=== PATIENT | female | born 1980 | race Two or more races ===

== ENCOUNTER 2017-02-20 15:13 | Inpatient (IN) | payer OTHER ==
[~2017-02-20] VITALS: Ht 152.4 cm; Wt 89.4 kg
[~2017-02-20 15:13] MED LIST: LISI-603 PO
[2017-02-20 15:49] LABS: BASOPHILS % (AUTO) 0.5 % (0.0-2.0); EOSINOPHILS # (AUTO) 0.1 /CMM (0.0-0.7); EOSINOPHILS % (AUTO) 1.7 % (0.0-6.0); HEMATOCRIT 40 % (33-45); LYMPHOCYTES % (AUTO) 36.9 % (20.0-44.0); MEAN CORPUSCULAR HEMOGLOBIN 26 PG (26.0-33.0); MEAN CORPUSCULAR HGB CONC 32 g/dl (31.0-36.0); MEAN CORPUSCULAR VOLUME 80 fL (82-100); MONOCYTES # (AUTO) 0.5 /CMM (0.1-1.30); MONOCYTES % (AUTO) 5.5 % (2.0-12.0); NEUTROPHILS # (AUTO) 4.6 /CMM (1.8-8.9); NEUTROPHILS % (AUTO) 55.4 % (43.0-81.0); PLATELET COUNT (AUTO) 272 /CMM (150-450); RDW COEFFICIENT OF VARIATION 14.8 (11.5-15.0); RED BLOOD CELL COUNT(AUTO) 5.01 MIL/uL (4.0-5.2); WHITE BLOOD COUNT (AUTO) 8.2 K/uL (4.3-11.0)
[2017-02-20 15:59] LABS: CALCIUM, SERUM 8.8 mg/dL (8.5-10.1); CARBON DIOXIDE 27 mmol/L (21-32); CHLORIDE 102 mmol/L (98-107); CREATININE 1.1 mg/dL (0.6-1.3); GLUCOSE 110 mg/dL (74-106); POTASSIUM 3.7 mmol/L (3.5-5.1); SODIUM SERUM 139 mmol/L (136-145); UREA NITROGEN, BLOOD 20 mg/dL (7-18)
[2017-02-20 16:03] LABS: INR 0.99 (0.87-1.13); PROTHROMBIN TIME 10.3 SECS (9.5-12.7)
[2017-02-20 16:04] LABS: ALANINE AMINOTRANSFERASE 14 U/L (12-78); ALBUMIN 3.9 g/dL (3.4-5.0); ALCOHOL, BLOOD < 3 mg/dL (0-0); ALKALINE PHOSPHATASE 92 U/L (46-116); ASPARTATE AMINOTRANSFERASE 11 U/L (15-37); BILIRUBIN,DIRECT 0.1 mg/dL (0.0-0.2); BILIRUBIN,TOTAL 0.4 mg/dL (0.2-1.0); TOTAL PROTEIN, SERUM 7.9 g/dL (6.4-8.2)
[2017-02-20 16:33] LABS: PHENYTOIN (DILANTIN) < 0.5 ug/ml (10.0-20.0)
[2017-02-20] MEDS ORDERED: PANT40TA4 PO (16:47)
[2017-02-20] MEDS ORDERED: MEMA5TAB PO (16:47)
[2017-02-20] MEDS ORDERED: ATOR80TA PO (16:47)
[2017-02-20] MEDS ORDERED: METO25TA6 PO (16:47)
[2017-02-20] MEDS ORDERED: BENA10TA2 PO (16:47)
[2017-02-20] MEDS ORDERED: NIFE90TA2 PO (16:47)
[2017-02-20] MEDS ORDERED: ESCI20TA PO (16:47)
[2017-02-20 18:00] VITALS: BP 127/84
[2017-02-20 20:00] VITALS: BP 129/77
[2017-02-21] VITALS: BP 128/80
[2017-02-21 04:00] VITALS: BP 139/91
[2017-02-21 06:35] LABS: BASOPHILS % (AUTO) 0.6 % (0.0-2.0); EOSINOPHILS # (AUTO) 0.1 /CMM (0.0-0.7); EOSINOPHILS % (AUTO) 1.4 % (0.0-6.0); HEMATOCRIT 45 % (33-45); HEMOGLOBIN 14.6 g/dL (11.5-14.8); LYMPHOCYTES % (AUTO) 36.3 % (20.0-44.0); MEAN CORPUSCULAR HEMOGLOBIN 26 PG (26.0-33.0); MEAN CORPUSCULAR HGB CONC 33 g/dl (31.0-36.0); MEAN CORPUSCULAR VOLUME 81 fL (82-100); MONOCYTES # (AUTO) 0.5 /CMM (0.1-1.30); MONOCYTES % (AUTO) 5.6 % (2.0-12.0); NEUTROPHILS # (AUTO) 4.6 /CMM (1.8-8.9); NEUTROPHILS % (AUTO) 56.1 % (43.0-81.0); PLATELET COUNT (AUTO) 250 /CMM (150-450); RDW COEFFICIENT OF VARIATION 15.7 (11.5-15.0); RED BLOOD CELL COUNT(AUTO) 5.53 MIL/uL (4.0-5.2); WHITE BLOOD COUNT (AUTO) 8.2 K/uL (4.3-11.0)
[2017-02-21 07:00] LABS: CREATININE 0.8 mg/dL (0.6-1.3); MAGNESIUM 2.1 mg/dL (1.8-2.4); PHOSPHORUS 4.4 mg/dL (2.5-4.9)
[2017-02-21 07:07] LABS: POTASSIUM 3.8 mmol/L (3.5-5.1)
[2017-02-21 07:08] LABS: THYROID STIMULATING HORMONE 3.858 uIU/mL (0.358-3.74)
[2017-02-21 08:00] VITALS: BP 137/86
[2017-02-21 08:36] VITALS: BP 134/58
[2017-02-21 11:12] LABS: APPEARANCE,URINE TURBID (CLEAR); BILIRUBIN,URINE NEGATIVE (NEGATIVE); BLOOD, URINE NEGATIVE Ery/uL (NEGATIVE); COLOR,URINE YELLOW (YELLOW); KETONES,URINE NEGATIVE (NEGATIVE); LEUKOCYTE ESTERASE ,URINE NEGATIVE (NEGATIVE); NITRITE, URINE NEGATIVE (NEGATIVE); PROTEIN,URINE NEGATIVE (NEGATIVE); UGLUCOSE NEGATIVE (NEGATIVE); UROBILINOGEN,URINE 0.2 EU/dL (0.2)
[2017-02-21 11:15] LABS: BACTERIA,URINE 1+ /HPF (None Seen); MUCUS,URINE Few /LPF (None Seen); RBC,URINE 0-2 /HPF (0-2); URINE AMORPHOUS URATE Moderate /HPF (None Seen); WBC,URINE 0-2 /HPF (0-3)
[2017-02-21] MEDS ORDERED: LEVE500T9 PO (11:33)
== END 2017-02-21 14:20 | disposition home or self-care (01) | DRG 53 ==
LOC: ER 15:15 → TELE 17:38 → MED 02-21 08:35
PROVIDERS: ADMIT Nurse Practitioner Acute Care; ATTEND Nurse Practitioner Acute Care
DX: G40.909 Epilepsy, unspecified, not intractable, without status epilepticus (principal); N17.0 Acute kidney failure with tubular necrosis; I69.354 Hemiplegia and hemiparesis following cerebral infarction affecting left non-dominant side; I10 Essential (primary) hypertension; Z98.890 Other specified postprocedural states; Z88.0 Allergy status to penicillin; Z79.899 Other long term (current) drug therapy; E66.9 Obesity, unspecified; I69.311 Memory deficit following cerebral infarction; Z68.38 Body mass index [BMI] 38.0-38.9, adult
CPT/HCPCS: 36415; 70450-TC; 71010-TC; 80048-TC; 80061-TC; 80076-TC; 80185-TC; 80305; 81000-TC; 83735-TC; 84100-TC; 84443-TC; 84703-TC; 85025-TC; 85730-TC; 87081-TC; 95819-TC; A4606; G0480; J1953; J7030; Z7610

== ENCOUNTER 2017-10-17 04:06 | Emergency (ER) | payer OTHER ==
[~2017-10-17] VITALS: Ht 165.1 cm; Wt 97.5 kg
[~2017-10-17 04:06] MED LIST changes: +ATOR80TA PO; +BENA10TA9 PO; +ESCI20TA PO; +LEVE500T9 PO; -LISI-603 PO; +MEMA5TAB PO; +METO25TA6 PO; +NIFE90TA2 PO; +PANT40TA4 PO
--- NOTE | 2017-10-17 04:06 | NUR ---
to bed [facility] paramedics c/o seizure. receive pt aaox4 no acute distress noted, resp even and unlabored. 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 no oral trauma, no bowel or bladder incontinence noted. place pt on cardiac monitoring, continuous pox. pending er md elizabeth.
[2017-10-17 05:08] LABS: BASOPHILS % (AUTO) 0.5 % (0.0-2.0); EOSINOPHILS % (AUTO) 1.1 % (0.0-6.0); HEMATOCRIT 39 % (33-45); HEMOGLOBIN 12.5 g/dL (11.5-14.8); LYMPHOCYTES # (AUTO) 2.2 /CMM (0.8-4.8); LYMPHOCYTES % (AUTO) 26.7 % (20.0-44.0); MEAN CORPUSCULAR HGB CONC 33 g/dl (31.0-36.0); MEAN CORPUSCULAR VOLUME 78 fL (82-100); MONOCYTES # (AUTO) 0.5 /CMM (0.1-1.30); MONOCYTES % (AUTO) 6.5 % (2.0-12.0); NEUTROPHILS # (AUTO) 5.4 /CMM (1.8-8.9); NEUTROPHILS % (AUTO) 65.2 % (43.0-81.0); PLATELET COUNT (AUTO) 272 /CMM (150-450); RDW COEFFICIENT OF VARIATION 14.4 (11.5-15.0); RED BLOOD CELL COUNT(AUTO) 4.95 MIL/uL (4.0-5.2); WHITE BLOOD COUNT (AUTO) 8.3 K/uL (4.3-11.0)
[2017-10-17 05:09] LABS: APPEARANCE,URINE CLEAR (CLEAR); BILIRUBIN,URINE NEGATIVE (NEGATIVE); BLOOD, URINE 1+ Ery/uL (NEGATIVE); COLOR,URINE YELLOW (YELLOW); KETONES,URINE NEGATIVE (NEGATIVE); LEUKOCYTE ESTERASE ,URINE NEGATIVE (NEGATIVE); NITRITE, URINE POSITIVE (NEGATIVE); PROTEIN,URINE NEGATIVE (NEGATIVE); UGLUCOSE NEGATIVE (NEGATIVE); UROBILINOGEN,URINE 0.2 EU/dL (0.2)
[2017-10-17 05:14] LABS: BACTERIA,URINE Many /HPF (None Seen); SQUAMOUS EPITHELIAL CELL,UR Few /HPF (None Seen)
[2017-10-17 05:23] LABS: CALCIUM, SERUM 9.2 mg/dL (8.5-10.1); CREATININE 0.9 mg/dL (0.6-1.3); POTASSIUM 3.8 mmol/L (3.5-5.1)
[2017-10-17] MEDS ORDERED: LamoTRIgine 100 MG TABLET PO SCH (05:30)
--- NOTE | 2017-10-17 05:42 | NUR ---
Patient discharged to home in stable condition. Written and verbal after care instructions given. Patient verbalizes understanding of instruction.IV removed. Catheter intact and site benign. Pressure and 4x4 applied to site. No bleeding noted.
[2017-10-17 05:47] VITALS: BP 145/88
== END 2017-10-17 05:47 | disposition home or self-care (01) ==
LOC: ER 04:08
DX: G40.909 Epilepsy, unspecified, not intractable, without status epilepticus (principal); F32.9 Major depressive disorder, single episode, unspecified; I10 Essential (primary) hypertension; Z86.73 Personal history of transient ischemic attack (TIA), and cerebral infarction without residual deficits; Z88.0 Allergy status to penicillin; Z88.1 Allergy status to other antibiotic agents; Z98.890 Other specified postprocedural states
CPT/HCPCS: 36415; 80048-TC; 81000-TC; 82962-TC; 84703-TC; 85025-TC; 87086-TC; 87186-TC; A4606; Z7610

== ENCOUNTER 2017-12-06 09:44 | Emergency (ER) | payer OTHER ==
[~2017-12-06] VITALS: Ht 160 cm; Wt 97.1 kg
[~2017-12-06 09:44] MED LIST changes: +BENA10TA2 PO; -BENA10TA9 PO
--- NOTE | 2017-12-06 09:46 | NUR ---
AAOX2, BIBRA 37 FROM HOME C/O SEIZURE ABOUT A MINUTE, NO TRAUMA, NF=[id number]/DL, POST-ICTAL. RR IS EVEN AND UNLABORED WITH NO ACUTE RESP/CARDIAC DISTRESS. SKIN IS WARM AND DRY. LAST SEIZURE WAS IN OCTOBER 2017. PLACED ON MONITOR. AWAITING MD FOR EVAL.
--- NOTE | 2017-12-06 09:56 | NUR ---
DR MULLINS AT BS FOR NERISSA.
--- NOTE | 2017-12-06 10:30 | NUR ---
Pt ambulatory with a steady gait.
--- NOTE | 2017-12-06 10:35 | NUR ---
IV removed. Catheter intact and site benign. Pressure and 4x4 applied to site. No bleeding noted.
--- NOTE | 2017-12-06 10:40 | NUR ---
Patient discharged to home in stable condition. Written and verbal after care instructions given. Patient verbalizes understanding of instruction.
[2017-12-06 10:53] VITALS: BP 114/68
== END 2017-12-06 10:54 | disposition home or self-care (01) ==
LOC: ER 09:45
DX: G40.909 Epilepsy, unspecified, not intractable, without status epilepticus (principal); F32.9 Major depressive disorder, single episode, unspecified; I10 Essential (primary) hypertension; Z88.0 Allergy status to penicillin; Z86.73 Personal history of transient ischemic attack (TIA), and cerebral infarction without residual deficits; Z98.890 Other specified postprocedural states
CPT/HCPCS: A4606; Z7610

== ENCOUNTER 2022-03-27 08:42 | Inpatient (IN) | payer OTHER ==
[~2022-03-27] VITALS: Ht 152.4 cm; Wt 96.2 kg
[~2022-03-27 08:42] MED LIST changes: -BENA10TA2 PO; +BENA10TA74 PO; -PANT40TA4 PO; +PANT40TA49 PO
--- NOTE | 2022-03-27 08:50 | NUR ---
[id number] home for witnessed seizure lasting 3 mins, no head/oral trauma; to er bed 12. pt changed to gown and attached to monitor. seizure precs observed.
--- NOTE | 2022-03-27 10:03 | NUR ---
URINE SAMPLE COLLECTED AND SENT TO LAB
--- NOTE | 2022-03-27 10:04 | NUR ---
EKG DONE AT BEDSIDE
--- NOTE | 2022-03-27 10:05 | NUR ---
IV LINE ESTABLISHED ON LAC #20, BLOOD DRAWN AND COLLECTED BY PHLEB AT BEDSIDE.
[2022-03-27 10:07] LABS: BASOPHILS % (AUTO) 0.5 % (0.0-2.0); EOSINOPHILS % (AUTO) 0.6 % (0.0-6.0); HEMATOCRIT 47 % (33-45); HEMOGLOBIN 15.3 g/dL (11.5-14.8); LYMPHOCYTES # (AUTO) 1.7 K/uL (0.8-4.8); LYMPHOCYTES % (AUTO) 20.4 % (20.0-44.0); MEAN CORPUSCULAR HGB CONC 33 g/dl (31.0-36.0); MEAN CORPUSCULAR VOLUME 85 fL (82-100); MONOCYTES # (AUTO) 0.5 K/uL (0.1-1.30); MONOCYTES % (AUTO) 5.6 % (2.0-12.0); NEUTROPHILS # (AUTO) 6.2 K/uL (1.8-8.9); NEUTROPHILS % (AUTO) 72.9 % (43.0-81.0); PLATELET COUNT (AUTO) 207 K/uL (150-450); RED BLOOD CELL COUNT(AUTO) 5.53 MIL/uL (4.0-5.2); WHITE BLOOD COUNT (AUTO) 8.6 K/uL (4.3-11.0)
[2022-03-27] MEDS ORDERED: LAMO100T17 PO (10:18)
[2022-03-27] MEDS ORDERED: LOSA25TA27 PO (10:18)
--- NOTE | 2022-03-27 10:18 | NUR ---
COVID AND MRSA SWABS OBTAINED AND SENT TO LAB
[2022-03-27] MEDS ORDERED: OMEG1CAP PO (10:19)
--- NOTE | 2022-03-27 10:24 | NUR ---
[facility] CALLED VERIFICATION SPECIALIST PAGED.
[2022-03-27 10:37] LABS: ALCOHOL, BLOOD < 3 mg/dL (0-0); CALCIUM, SERUM 9.2 mg/dL (8.5-10.1); CARBON DIOXIDE 26 mmol/L (21-32); CHLORIDE 105 mmol/L (98-107); CREATININE 1.2 mg/dL (0.6-1.3); GLUCOSE 118 mg/dL (74-106); POTASSIUM 3.6 mmol/L (3.5-5.1); SODIUM SERUM 139 mmol/L (136-145); UREA NITROGEN, BLOOD 15 mg/dL (7-18)
[2022-03-27] MEDS ORDERED: IOHEXOL-350 100 ML VIAL IV ONE (10:43)
--- NOTE | 2022-03-27 10:49 | NUR ---
PT TAKEN TO RADIOLOGY FOR CT
--- NOTE | 2022-03-27 10:56 | NUR ---
GOT BED 108
--- NOTE | 2022-03-27 11:08 | NUR ---
PT RETURNED FROM RADIOLOGY
--- NOTE | 2022-03-27 11:16 | NUR ---
PT REPORT GIVEN TO CHANELL GIBSON
[2022-03-27 12:16] VITALS: BP 134/78
--- NOTE | 2022-03-27 12:16 | NUR ---
PT TRANSFERRED TO 108 VIA [facility] ACLS PROTOCOL. WARM HANDOFF GIVEN TO CHANELL GIBSON
--- NOTE | 2022-03-27 12:16 | NUR ---
RN NOTES PATIENT ADMITTED FROM ER 42Y/OLD FEMALE ON Dx OF R/O CVA, SEIZURE. PATEIN A/O X3, FORGETFUL PER BROTHER, LEFT SIDE WEAKNESS, CONTINENT USING BATHROOM. SKIN ASSESSMENT DONE INTACT. PATIENT ROOM AIR ACUTE RESPIRATORY DISTRESS. FAMILY NEXT TO THE BED. IV ACCESS ON LAC AREA INTACT. VS TAKEN BP- 134/78, P-73, T-98.1F, O2-94 RA, PATIENT REFUSED PAIN, HIGH FALL RISK. CALL LIGHT WITHIN TO REACH. SAFETY PRECAUTION MAINTAINED ALL THE TIME.
[2022-03-27] MEDS ORDERED: MEMA10TA PO (14:55)
[2022-03-27] MEDS ORDERED: ZONI100C31 PO (14:55)
[2022-03-27] MEDS: ENOXAPARIN SODIUM 40 MG/0.4 ML DISP.SYRIN SQ SCH (15:53)
[2022-03-27 16:00] VITALS: BP 121/83
[2022-03-27 17:00] VITALS: BP 121/83
--- NOTE | 2022-03-27 18:15 | NUR ---
RN NOTES PATENT STABLE, BP1-121/83,P-76, TOLERATED DINNER 75% SELF, REFUSED PAIN. NEURO ASSESSMENT DONE, PATIENT HAS WEAKNESS LEFT ARM AND LEFT LEG. DUE MEDICATION ADMINISTERED. CALL LIGHT WITHIN TO REACH. ENDORSED ONCOMING NURSE FOLLOW ALEXYS.
[2022-03-27] MEDS: LamoTRIgine 100 MG TABLET PO SCH (20:54)
[2022-03-27 21:00] VITALS: BP 128/71
--- NOTE | 2022-03-27 23:13 | NUR ---
FIELD SERVICE TECH OPENING NOTE PT RECEIVED IN BED, AWAKE, A&O X4, CALM, COOPERATIVE. PT ON RA WITH CURRENT O2SAT OF 93%; NO S/S OF RESP DISTRESS, NO SOB OR COUGH, NON-LABORED AND EQUAL BREATHING. PT ATTACHED ATTACHED TO EXTERNAL MONITOR, SR WITH HR OF 87. IV ACCESS ON LAC 20G, INTACT AND PATENT, FLUSHES EASILY WITH NO RESISTANCE; NO MEDS/FLUIDS INFUSING THROUGH IT. BED IN LOWEST POSITION, CALL LIGHT WITHIN REACH, SIDE RAILS UP X2. WILL CONTINUE TO MONITOR THROUGHOUT THE NIGHT.
[2022-03-28 01:00] VITALS: BP 125/76
[2022-03-28 05:00] VITALS: BP 128/80
--- NOTE | 2022-03-28 06:53 | NUR ---
VACUUM BOTTLE ASSEMBLER CLOSING NOTE PT REMAINS IN BED, ASLEEP BUT EASILY AROUSABLE, A&O X4; NO CHANGES TO NEURO STATUS, NO SEIZURE ACTIVITY NOTED DURING THE NIGHT. CONTINUES TO BE ON RA WITH O2SAT RANGING FROM 93%-97%; NO S/S OF RESP DISTRESS, NO SOB OR COUGH, NON-LABORED AND EQUAL BREATHING. ATTACHED TO EXTERNAL MONITOR, SR WITH HR RANGING FROM 77-87. LAC 20G INTACT AND PATENT, FLUSHES EASILY WITH NO RESISTANCE; NO MEDS/FLUIDS INFUSING THROUGH IT. ALL DUE MEDS ADMINISTERED DURING THE NIGHT. BED IN LOWEST POSITION, CALL LIGHT WITHIN REACH, SIDE RAILS UP X2. WILL ENDORSE TO DAYSHIFT NURSE TO CONTINUE CARE.
[2022-03-28 07:14] LABS: BASOPHILS % (AUTO) 0.5 % (0.0-2.0); EOSINOPHILS % (AUTO) 1.2 % (0.0-6.0); HEMATOCRIT 45 % (33-45); HEMOGLOBIN 14.7 g/dL (11.5-14.8); LYMPHOCYTES # (AUTO) 2.8 K/uL (0.8-4.8); LYMPHOCYTES % (AUTO) 37.3 % (20.0-44.0); MEAN CORPUSCULAR HGB CONC 33 g/dl (31.0-36.0); MEAN CORPUSCULAR VOLUME 85 fL (82-100); MONOCYTES # (AUTO) 0.5 K/uL (0.1-1.30); MONOCYTES % (AUTO) 6.8 % (2.0-12.0); NEUTROPHILS # (AUTO) 4.1 K/uL (1.8-8.9); NEUTROPHILS % (AUTO) 54.2 % (43.0-81.0); PLATELET COUNT (AUTO) 213 K/uL (150-450); RED BLOOD CELL COUNT(AUTO) 5.25 MIL/uL (4.0-5.2); WHITE BLOOD COUNT (AUTO) 7.6 K/uL (4.3-11.0)
--- NOTE | 2022-03-28 07:25 | NUR ---
PROJECT EXECUTIVE OPENING NOTE PT RECEIVED IN BED, AWAKE, A&O X4, CALM, COOPERATIVE. PT ON RA WITH CURRENT O2SAT OF 93%; NO S/S OF RESP DISTRESS, NO SOB OR COUGH, NON-LABORED AND EQUAL BREATHING. DENIES ANY PAIN. PT ATTACHED ATTACHED TO EXTERNAL MONITOR, SR WITH HR=81. IV ACCESS ON LAC 20G, INTACT., NO MEDS/FLUIDS INFUSING THROUGH IT. BED IN LOWEST POSITION, CALL LIGHT WITHIN REACH, SIDE RAILS UP X2. WILL CONTINUE PLAN OF CARE.
[2022-03-28 07:33] LABS: CALCIUM, SERUM 8.7 mg/dL (8.5-10.1); POTASSIUM 3.5 mmol/L (3.5-5.1)
[2022-03-28 07:54] LABS: THYROID STIMULATING HORMONE 4.143 uIU/mL (0.358-3.74)
[2022-03-28] MEDS: ASPIRIN 81 MG TAB.CHEW PO SCH (08:13)
[2022-03-28] MEDS: LamoTRIgine 100 MG TABLET PO SCH ×2 (08:14→20:29)
[2022-03-28] MEDS: MEMANTINE HCL 5 MG TABLET PO SCH (08:17)
[2022-03-28] MEDS: LOSARTAN POTASSIUM 25 MG TABLET PO SCH (08:17)
[2022-03-28] MEDS: METOPROLOL TARTRATE 25 MG TABLET PO SCH ×2 (08:18→16:14)
[2022-03-28] MEDS: NIFEdipine XL (30MG) 30 MG TAB PO SCH (08:18)
[2022-03-28 09:00] VITALS: BP 115/51
[2022-03-28] MEDS ORDERED: Medication Not On Formulary EA (Omega-3 Fatty Acids/Fish Oil (Fish Oil 1,000 Mg Capsule) PO SCH (09:00)
--- NOTE | 2022-03-28 09:06 | NUR ---
SS consult requested over the weekend for stroke. SS will follow up at a later time. Addendum: 03/28/22 at 0912 by CHON LEONE Per EMR, stroke was ruled out, no need for SS consult for stroke assessment and resources.
--- NOTE | 2022-03-28 12:33 | NUR ---
PATIENT LEFT UNIT WITH RADIOLOGY TEAM TO UNDERGO MRI EXAM.
[2022-03-28 13:00] VITALS: BP 132/92
--- NOTE | 2022-03-28 13:44 | NUR ---
PATIENT RETURNED FROM MRI
[2022-03-28] MEDS: ENOXAPARIN SODIUM 40 MG/0.4 ML DISP.SYRIN SQ SCH (14:31)
[2022-03-28 17:00] VITALS: BP 121/84
[2022-03-28] MEDS ORDERED: ZONISAMIDE 100 MG CAPSULE PO PRN (18:00)
--- NOTE | 2022-03-28 18:25 | NUR ---
CARGO WORKER CLOSING NOTE PATIENT IN BED AWAKE, ALERT AND VERBALLY RESPONSIVE, A&O X4; NO CHANGES TO NEURO STATUS, NO SEIZURE ACTIVITY NOTED DURING THE SHIFT. CONTINUES TO BE ON RA WITH O2SAT 96%. NO S/S OF RESP DISTRESS, NO SOB OR COUGH, NON-LABORED AND EQUAL BREATHING. ATTACHED TO EXTERNAL MONITOR, SR WITH HR 76. RIGHT WRIST PERIPHERAL LINE NOTED INTACT AND PATENT, FLUSHES EASILY WITH NO RESISTANCE; NO MEDS/FLUIDS INFUSING THROUGH IT. BED IN LOWEST POSITION, CALL LIGHT WITHIN REACH, SIDE RAILS UP X2. WILL ENDORSE TO MAIL HANDLER SORTER NURSE TO CONTINUE CARE.
[2022-03-28 21:00] VITALS: BP 105/70
--- NOTE | 2022-03-28 23:11 | NUR ---
FURNITURE REPAIRER OPENING NOTE PT RECEIVED IN BED, AWAKE, A&O X4. CALM, COOPERATIVE. PT ON RA WITH CURRENT O2SAT OF 96%; NO S/S OF RESP DISTRESS, NO SOB OR COUGH, NON-LABORED AND EQUAL BREATHING. PT ATTACHED TO EXTERNAL MONITOR, SR WITH HR OF 71. PT AMBULATORY WITH USE OF WALKER; STEADY GAIT. IV ACCESS ON RIGHT WRIST 22G, INTACT AND PATENT, FLUSHES EASILY WITH NO RESISTANCE; NO MEDS/FLUIDS INFUSING THROUGH IT. BED IN LOWEST POSITION, CALL LIGHT WITHIN REACH, SIDE RAILS UP X2. WILL CONTINUE TO MONITOR THROUGHOUT THE NIGHT.
[2022-03-29 01:00] VITALS: BP 124/86
[2022-03-29 05:00] VITALS: BP 124/84
[2022-03-29 06:56] LABS: BASOPHILS % (AUTO) 0.5 % (0.0-2.0); EOSINOPHILS % (AUTO) 1.7 % (0.0-6.0); HEMATOCRIT 43 % (33-45); HEMOGLOBIN 14.3 g/dL (11.5-14.8); LYMPHOCYTES % (AUTO) 34.5 % (20.0-44.0); MEAN CORPUSCULAR HGB CONC 33 g/dl (31.0-36.0); MEAN CORPUSCULAR VOLUME 85 fL (82-100); MONOCYTES # (AUTO) 0.7 K/uL (0.1-1.30); MONOCYTES % (AUTO) 8.6 % (2.0-12.0); NEUTROPHILS # (AUTO) 4.7 K/uL (1.8-8.9); NEUTROPHILS % (AUTO) 54.7 % (43.0-81.0); PLATELET COUNT (AUTO) 210 K/uL (150-450); RED BLOOD CELL COUNT(AUTO) 5.11 MIL/uL (4.0-5.2); WHITE BLOOD COUNT (AUTO) 8.6 K/uL (4.3-11.0)
--- NOTE | 2022-03-29 07:05 | NUR ---
RN NOTES RECEIVED PT ON BED , A/Ox4, ON RA, PATRICIA ANY DISTRESS AT THIS TIME, ON TELE SR , IV SITE CDI, CONTINUE TO MONITOR .
[2022-03-29 07:25] LABS: CALCIUM, SERUM 9.1 mg/dL (8.5-10.1); CREATININE 1.1 mg/dL (0.6-1.3); MAGNESIUM 2.4 mg/dL (1.8-2.4); PHOSPHORUS 4.6 mg/dL (2.5-4.9); POTASSIUM 3.9 mmol/L (3.5-5.1)
--- NOTE | 2022-03-29 07:29 | NUR ---
SALES FACILITATOR CLOSING NOTE PT REMAINS IN BED, AWAKE, A&O X4; NO CHANGES TO NEURO STATUS, NO SEIZURE ACTIVITY NOTED DURING THE NIGHT. CONTINUES TO BE ON RA WITH O2SAT IN THE 90S; NO S/S OF RESP DISTRESS, NO SOB OR COUGH, NON-LABORED AND EQUAL BREATHING. ATTACHED TO EXTERNAL MONITOR, SR WITH HR RANGING FROM 77-87. LAC 20G INTACT AND PATENT, FLUSHES EASILY WITH NO RESISTANCE; NO MEDS/FLUIDS INFUSING THROUGH IT. ALL DUE MEDS ADMINISTERED DURING THE NIGHT. BED IN LOWEST POSITION, CALL LIGHT WITHIN REACH, SIDE RAILS UP X2. WILL ENDORSE TO DAYSHIFT NURSE TO CONTINUE CARE.
[2022-03-29 08:00] VITALS: BP 122/84
[2022-03-29] MEDS: LamoTRIgine 100 MG TABLET PO SCH (08:41)
[2022-03-29] MEDS: NIFEdipine XL (30MG) 30 MG TAB PO SCH (08:41)
[2022-03-29] MEDS: METOPROLOL TARTRATE 25 MG TABLET PO SCH (08:42)
[2022-03-29] MEDS: MEMANTINE HCL 5 MG TABLET PO SCH (08:42)
[2022-03-29] MEDS: LOSARTAN POTASSIUM 25 MG TABLET PO SCH (08:42)
[2022-03-29] MEDS: ASPIRIN 81 MG TAB.CHEW PO SCH (08:42)
[2022-03-29 12:00] VITALS: BP 121/83
[2022-03-29] MEDS ORDERED: GADOTERATE MEGLUMINE 10 MMOL/20 ML VIAL IV ONE (12:33)
[2022-03-29] MEDS ORDERED: MEMA5TAB PO (13:20)
[2022-03-29] MEDS ORDERED: ASPI-1169 PO (13:20)
[2022-03-29] MEDS ORDERED: LOSA25TA27 PO (13:20)
[2022-03-29] MEDS ORDERED: LAMO100T2 PO (13:20)
[2022-03-29] MEDS ORDERED: NIFE-35 PO (13:20)
[2022-03-29] MEDS ORDERED: METO25TA20 PO (13:20)
[2022-03-29] MEDS ORDERED: ZONI100C42 PO (13:20)
--- NOTE | 2022-03-29 13:50 | NUR ---
RN NOTES PT STABLE, DISCHARGE INSTRUCTION GIVEN , VERBALIZES UNDERSTANDING , IV SITE D/GARETT , PT LEFT THE FLOOR VIA W/C ACCOMPANIED BY STAFF MEMBERS AND FAMILY IN STABLE CONDITION TO MAIN ENTRANCE .
== END 2022-03-29 14:37 | disposition home health service (06) | DRG 47 ==
LOC: ER 08:44 → TELE1 11:00
PROVIDERS: ADMIT Student in an Organized Health Care Education/Training Program; ATTEND Nurse Practitioner Acute Care
DX: G45.9 Transient cerebral ischemic attack, unspecified (principal); G93.40 Encephalopathy, unspecified; E44.1 Mild protein-calorie malnutrition; R56.9 Unspecified convulsions; F03.93 Unspecified dementia, unspecified severity, with mood disturbance; Z86.73 Personal history of transient ischemic attack (TIA), and cerebral infarction without residual deficits; I10 Essential (primary) hypertension; E78.5 Hyperlipidemia, unspecified; F32.A Depression, unspecified; Z88.0 Allergy status to penicillin; Z79.899 Other long term (current) drug therapy; Z91.199 Patient's noncompliance with other medical treatment and regimen due to unspecified reason; Z82.49 Family history of ischemic heart disease and other diseases of the circulatory system; E66.9 Obesity, unspecified; Z68.41 Body mass index [BMI] 40.0-44.9, adult; Z98.890 Other specified postprocedural states
CPT/HCPCS: 36415; 70450-TC; 70496-TC; 70498-TC; 70553-TC; 80048-TC; 80061-TC; 80175; 82962-TC; 83735-TC; 84100-TC; 84439-TC; 84443-TC; 84703-TC; 85025-TC; 87081-TC; 92526; 92611-TC; 93307-TC; 97116-TC; 97530-TC; A9575; G0378; G0480; J1650; Q9967